=== PATIENT | male | born 1965 | race Caucasian/White ===

== ENCOUNTER 2022-10-07 15:10 | Inpatient (IN) | payer MEDICARE, MEDICAID ==
[~2022-10-07] VITALS: Ht 172.7 cm; Wt 75.3 kg
[~2022-10-07 15:10] MED LIST: ALLO100T PO; ASCO125T PO; ASPI-1497 PO; ATOR40TA70 PO; CARV12.545 PO; CITA10TA16 PO; CYAN250T12 PO; DOCU-138 PO; FERR-43 PO; FURO40TA5 PO; GABA-532 PO; HUMALOG INSULIN; LISI1TAB9 PO; LORA10TA7 PO; OMEP10CA5 PO; PYRI25TA4 PO; SPIR25TA PO
[2022-10-07 18:59] LABS: BASOPHILS % 1.9 % (0.0-2.0); EOSINOPHILS % 0.8 % (0.0-5.0); LYMPHOCYTES % 24.9 % (20.0-50.0); MEAN CORPUSCULAR HEMOGLOBIN 22.5 pg (28.0-32.0); MEAN CORPUSCULAR VOLUME 73.2 fL (80.0-94.0); MEAN PLATELET VOLUME 8.5 fl (7.4-10.4); NEUTROPHILS % 62.4 % (40.0-76.0); PLATELET 341 x1000/uL (130-400); RED BLOOD CELL COUNT 2.21 mill/uL (4.7-6.1); RED CELL DISTRIBUTION WIDTH 16.9 % (11.6-14.6)
[2022-10-07 19:08] LABS: CHLORIDE 106 mEq/L (98-107)
[2022-10-07 19:09] LABS: HEMATOCRIT. 16.1 % (42.0-52.0)
[2022-10-07 20:05] LABS: INR 1.7; PARTIAL THROMBOPLASTIN TIME 32.8 sec (23.4-31.0); PROTHROMBIN TIME 17.6 sec (9.6-11.0)
[2022-10-07] MEDS ORDERED: ONDANSETRON HCL 4MG/2ML INJ IV PRN (23:00)
[2022-10-07] MEDS ORDERED: DOCUSATE SODIUM 100MG CAPSULE PO PRN (23:00)
[2022-10-07] MEDS ORDERED: IPRATROPIUM/ALBUTEROL 0.5-3(2.5)MG/3ML NEB NEB PRN (23:00)
[2022-10-07] MEDS ORDERED: CLONIDINE 0.1MG TABLET PO PRN (23:00)
[2022-10-07] MEDS ORDERED: GUAIFENESIN 200MG/10ML SUGAR FREE UDC PO PRN (23:00)
[2022-10-07] MEDS ORDERED: ACETAMINOPHEN 325MG TABLET PO PRN ×2 (23:00)
[2022-10-07] MEDS ORDERED: MAGNESIUM/ALUMINUM HYDROXIDE/SIMETHICONE 30ML UDC PO PRN (23:00)
[2022-10-07] MEDS ORDERED: IPRATROPIUM BROMIDE (0.02%) 0.5MG/2.5ML NEB HHN PRN (23:15)
[2022-10-07] MEDS ORDERED: ALBUTEROL (0.083%) 2.5MG/3ML NEB HHN PRN (23:15)
[2022-10-07] MEDS ORDERED: PANTOPRAZOLE 80 MG in SODIUM CHLORIDE 0.9% 100 ML IV SCH (23:30)
[2022-10-08] MEDS: PANTOPRAZOLE 80 MG in SODIUM CHLORIDE 0.9% 100 ML IV SCH ×2 (00:23→09:24)
[2022-10-08 02:10] LABS: *AMPHETAMINES SCREEN URINE NEGATIVE (NEGATIVE); *BARBITURATES SCREEN URINE NEGATIVE (NEGATIVE); *BENZODIAZEPINES SCREEN URINE NEGATIVE (NEGATIVE); *COCAINE SCREEN URINE NEGATIVE (NEGATIVE); CANNABINOID URINE SCREEN PRESUMTIVE POSITIVE (NEGATIVE); METHADONE URINE SCREEN NEGATIVE (NEGATIVE); OPIATES URINE SCREEN NEGATIVE (NEGATIVE); PHENCYCLIDINE URINE SCREEN NEGATIVE (NEGATIVE)
[2022-10-08 05:05] LABS: BASOPHILS % 1.6 % (0.0-2.0); EOSINOPHILS % 1.8 % (0.0-5.0); HEMATOCRIT. 21.1 % (42.0-52.0); LYMPHOCYTES % 31.5 % (20.0-50.0); MEAN CORPUSCULAR HEMOGLOBIN 24.6 pg (28.0-32.0); MEAN CORPUSCULAR VOLUME 77.3 fL (80.0-94.0); MEAN PLATELET VOLUME 7.9 fl (7.4-10.4); MONOCYTES % 12.5 % (2.0-8.0); NEUTROPHILS % 52.6 % (40.0-76.0); PLATELET 218 x1000/uL (130-400); RED BLOOD CELL COUNT 2.73 mill/uL (4.7-6.1); RED CELL DISTRIBUTION WIDTH 18.5 % (11.6-14.6)
[2022-10-08 05:25] LABS: CHLORIDE 111 mEq/L (98-107)
[2022-10-08 05:40] LABS: HDL CHOLESTEROL 34 mg/dL (40-59); LDL CHOLESTEROL 34 mg/dL (5-100); PHOSPHORUS 3.2 mg/dL (2.5-4.9); T4 FREE 1.16 ng/dL (0.76-1.46); TOTAL IRON BINDING CAPACITY 360 ug/dL (250-450)
[2022-10-08 06:06] LABS: HEMOGLOBIN. 6.7 g/dL (14.0-18.0)
[2022-10-08 06:58] LABS: VITAMIN B12 SERUM 551 pg/mL (211-911)
[2022-10-08 07:17] LABS: FOLIC ACID (FOLATE) SERUM > 20.00 ng/mL (>5.38)
[2022-10-08 10:59] VITALS: BP 106/43
[2022-10-08 12:00] VITALS: BP 101/45
[2022-10-08] MEDS ORDERED: SACU1TAB MT (12:05)
[2022-10-08] MEDS ORDERED: ROSU20TA2 MT (12:05)
[2022-10-08 16:00] VITALS: BP 90/30
[2022-10-08] MEDS: DEXT 5%/LACTATED RINGERS 1,000 ML IV SCH (16:48)
[2022-10-08] MEDS: IRON SUCROSE COMPLEX 100 MG/5 ML ML IV SCH (16:51)
[2022-10-08 20:00] VITALS: BP 93/42
[2022-10-08 20:35] LABS: HEMOGLOBIN 7.2 g/dL (14.0-18.0)
[2022-10-08] MEDS: PANTOPRAZOLE SODIUM 40 MG/VIAL IV SCH (20:52)
[2022-10-09] VITALS (9 sets, daily range): BP systolic 100–165; BP diastolic 28–85
[2022-10-09 01:37] LABS: HEMATOCRIT 23.1 % (42.0-52.0); HEMOGLOBIN 7.7 g/dL (14.0-18.0)
[2022-10-09] MEDS: DEXT 5%/LACTATED RINGERS 1,000 ML IV SCH ×3 (02:45→22:45)
[2022-10-09 07:37] LABS: INR 1.2; PROTHROMBIN TIME 12.6 sec (9.6-11.0)
[2022-10-09 07:48] LABS: CHLORIDE 110 mEq/L (98-107)
[2022-10-09 08:02] LABS: BASOPHILS % 1.1 % (0.0-2.0); EOSINOPHILS % 1.7 % (0.0-5.0); HEMATOCRIT. 25.4 % (42.0-52.0); HEMOGLOBIN. 8.3 g/dL (14.0-18.0); LYMPHOCYTES % 22.6 % (20.0-50.0); MEAN CORPUSCULAR HEMOGLOBIN 26.4 pg (28.0-32.0); MEAN CORPUSCULAR VOLUME 80.6 fL (80.0-94.0); MEAN PLATELET VOLUME 8.4 fl (7.4-10.4); MONOCYTES % 14.6 % (2.0-8.0); PLATELET 196 x1000/uL (130-400); RED BLOOD CELL COUNT 3.16 mill/uL (4.7-6.1); RED CELL DISTRIBUTION WIDTH 18.8 % (11.6-14.6)
[2022-10-09] MEDS: PANTOPRAZOLE SODIUM 40 MG/VIAL IV SCH ×2 (08:53→21:37)
[2022-10-09 13:02] LABS: HEMATOCRIT 25.3 % (42.0-52.0); HEMOGLOBIN 8.2 g/dL (14.0-18.0)
[2022-10-09] MEDS: IRON SUCROSE COMPLEX 100 MG/5 ML ML IV SCH (16:17)
[2022-10-09 18:07] LABS: HEMATOCRIT 26.1 % (42.0-52.0); HEMOGLOBIN 8.3 g/dL (14.0-18.0)
[2022-10-10] VITALS: BP 115/42
[2022-10-10 01:12] LABS: HEMATOCRIT 25.7 % (42.0-52.0); HEMOGLOBIN 8.3 g/dL (14.0-18.0)
[2022-10-10 08:00] VITALS: BP 117/48
[2022-10-10] MEDS: PANTOPRAZOLE SODIUM 40 MG/VIAL IV SCH (08:42)
[2022-10-10] MEDS: DEXT 5%/LACTATED RINGERS 1,000 ML IV SCH (08:43)
[2022-10-10 12:00] VITALS: BP 112/50
== END 2022-10-10 13:20 | disposition left against medical advice (07) | DRG 378 ==
LOC: ER 15:10 → EDBEDREQ 18:54 → 7EST 22:41 → EDBEDREQ 22:44 → SUPCPDRO 22:57
PROVIDERS: ADMIT Internal Medicine; ATTEND Internal Medicine
PROC: 30233N1 Transfusion of Nonautologous Red Blood Cells into Peripheral Vein, Percutaneous Approach (ICD-10-PCS; 2022-10-07)
PROC: 30233K1 Transfusion of Nonautologous Frozen Plasma into Peripheral Vein, Percutaneous Approach (ICD-10-PCS; principal; 2022-10-08)
DX: K92.1 Melena (principal); D62 Acute posthemorrhagic anemia; D68.9 Coagulation defect, unspecified; I10 Essential (primary) hypertension; D50.9 Iron deficiency anemia, unspecified; E11.9 Type 2 diabetes mellitus without complications; E78.00 Pure hypercholesterolemia, unspecified; N28.9 Disorder of kidney and ureter, unspecified; I25.10 Atherosclerotic heart disease of native coronary artery without angina pectoris; E78.5 Hyperlipidemia, unspecified; F12.90 Cannabis use, unspecified, uncomplicated; F17.210 Nicotine dependence, cigarettes, uncomplicated; Z53.29 Procedure and treatment not carried out because of patient's decision for other reasons; Z95.0 Presence of cardiac pacemaker; Z95.2 Presence of prosthetic heart valve; Z98.84 Bariatric surgery status; Z88.8 Allergy status to other drugs, medicaments and biological substances; Z79.899 Other long term (current) drug therapy; Z79.82 Long term (current) use of aspirin
CPT/HCPCS: 36415; 80048; 80053; 80061; 80305; 82270; 82607; 82728; 82746; 83036; 83540; 83550; 83735; 84100; 84439; 84443; 85014; 85018; 85025; 85044; 86850; 86900; 86920; 86927; 93306; 93970; 97162; 97166; 99291; C9113; J7050; J7121; P9016; P9017